=== PATIENT | female | born 1945 | race Caucasian/White ===

== ENCOUNTER 2018-10-30 14:04 | Emergency (ER) | payer OTHER, MEDICARE ==
--- NOTE | 2018-10-30 14:41 | EDPHY ---
H & P Stated Complaint: coughing, fevers, chills, recent dx of bone CA Time Seen by Provider: 10/30/18 14:24 HPI/ROS: CHIEF COMPLAINT: Cough, fever x5 weeks HISTORY OF PRESENT ILLNESS: 73-year-old female history of Waldenstrom macroglobulinemia diagnosed April 2018, followed at [facility] ( Dr Nesbitt) complaining of cough and recurrent intermittent fever for the past 5 weeks. She saw saw her oncologist Dr. Christianson ([place], [place]) 5 days ago for same complaints with no specific answer, in the ER complaining of continued cough and recurrent fever. She has not taken any [id number] antitussive medications. PRIMARY CARE PROVIDER:Amber Donnelly [facility] REVIEW OF SYSTEMS: 10 systems reviewed and negative with the exception of the elements mentioned in the history of present illness PAST MEDICAL & SURGICAL HISTORY: Waldenstrom macroglobulinemia, on Imbruvica. Since of consolidation right lung thought to be possibly secondary to Mac infection although this is currently being investigated at [facility] SOCIAL HISTORY: Nonsmoker PHYSICAL EXAM (Prior to examination, patient consented to physical exam, hands were washed and my usual and customary physical exam procedures followed) 1) GENERAL: Well-developed, well-nourished, alert and oriented. Appears to be in no acute distress. Speaking full sentences no signs of respiratory distress. 2) HEAD: Normocephalic, atraumatic 3) HEENT: Pupils equal, round, reactive to light bilaterally. Sclera anicteric. Nasopharynx, oropharynx, clear, no lesions. Moist mucous membranes. 4) NECK: Full range of motion, no meningeal signs. 5) LUNGS: Clear auscultation bilaterally, no wheezes, no rhonchi, no retractions. Breathing comfortably. 6) HEART: Regular rate and rhythm, no murmur, no heave, no gallop. 7) ABDOMEN: No guarding, no rebound, no focal tenderness, negative McBurney's, negative Abdi's, negative Rovsing's, negative peritoneal sign, 8) MUSCULOSKELETAL: Moving all extremities, no focal areas of tenderness, no obvious trauma. No peripheral edema or discoloration. 9) BACK: No CVA tenderness, no midline vertebral tenderness, no fluctuance, no step-off, no obvious trauma, no visual or palpable abnormality. 10) SKIN: No rash, no petechiae. 11) Psychiatric: Patient is oriented X 3, there is no agitation. DIFFERENTIAL DIAGNOSIS: In no particular order including but not limited to bronchitis, pneumonia, pneumothorax - Personal History Current Tetanus/Diphtheria Vaccine: Yes Current Tetanus Diphtheria and Acellular Pertussis (TDAP): Yes - Medical/Surgical History Hx Asthma: No Hx Chronic Respiratory Disease: No Hx Diabetes: No Hx Cardiac Disease: No Hx Renal Disease: No Hx Cirrhosis: No Hx Alcoholism: No Hx HIV/AIDS: No Hx Splenectomy or Spleen Trauma: No Other PMH: Recent CA dx, - Social History Smoking Status: Never smoked Constitutional: Initial Vital Signs Temperature (C) 36.8 C 10/30/18 14:13 Heart Rate 89 10/30/18 14:13 Respiratory Rate 16 10/30/18 14:13 Blood Pressure 137/77 H 10/30/18 14:13 O2 Sat (%) 94 10/30/18 14:13 O2 Delivery Mode Room Air Allergies/Adverse Reactions: No Known Allergies Allergy (Unverified 01/20/14 13:25) Home Medications: Medication Instructions Recorded Aspirin 05/13/16 Medical Decision Making - Diagnostics Imaging Results: Imaging Impressions Chest X-Ray 10/30/18 14:37 Impression: 1. Slight progression of consolidation with air-filled cystic changes inferior aspect of right upper lobe and to the right middle lobe. Chest/Thorax CTA 10/30/18 15:33 Impression: 1. Negative for acute pulmonary embolus. 2. Near total opacification of the right upper and middle lobes, increased in degree since 2016. There is associated bronchiectasis and ipsilateral mediastinal shift. Paratracheal lymph nodes are unchanged. This probably represents underlying chronic infection with atelectasis due to the mediastinal shift. Recommend pulmonary consultation. 3. A right upper lobe nodule measures 6.7 cm and demonstrates ground glass density around it. This has increased in size since 2016 but this increase in size may represent a superimposed infectious process. Would recommend repeat chest CT in 3 months to assess stability or resolution of the ground glass component. 4. Small right pleural effusion. Findings and recommendations discussed with Rox Montes at 1640 hour, . ED Course/Re-evaluation: 4:49 p.m.: Patient re-evaluated. She is sleeping, resting comfortably. While in the emergency department she has had no complaints of dyspnea or chest pain. I have observed the patient ambulating with pulse oximetry in place she is maintaining saturations of 94 and 95% on room air with exertion. Addition her lungs are clear bilaterally. At I discussed with the patient her diagnostic results showing increasing consolidation of the right lung as well as new right lung nodule. She has an appointment with her oncologist in [place], [place] tomorrow which I recommend she keep. Also recommend she follow up with her splitter machine [facility]. At this time I do not identify definitive indication for admission. She and daughter feel comfortable being discharged home. Patient feels comfortable being discharged. All questions and concerns addressed by myself. Patient given my usual and customary discharge precautions and instructions regarding their clinical impression. Care of patient under supervision of secondary supervising physician Dr Luna with whom I discussed case. - Data Points Laboratory Results: Laboratory Results 10/30/18 14:45 10/30/18 14:45 10/30/18 10/30/18 14:45 14:45 WBC 8.72 10^3/uL 10^3/uL (3.80-9.50) RBC 3.73 10^6/uL L 10^6/uL (4.18-5.33) Hgb 12.1 g/dL L g/dL (12.6-16.3) Hct 35.9 % L % (38.0-47.0) MCV 96.2 fL fL (81.5-99.8) MCH 32.4 pg pg (27.9-34.1) MCHC 33.7 g/dL g/dL (32.4-36.7) RDW 12.4 % % (11.5-15.2) Plt Count 147 10^3/uL L 10^3/uL (150-400) MPV 10.6 fL fL (8.7-11.7) Neut % (Auto) Not Reported Lymph % (Auto) Not Reported [place] % (Auto) Not Reported Eos % (Auto) Not Reported Baso % (Auto) Not Reported Nucleat RBC Rel Count Not Reported Absolute Neuts (auto) Not Reported Absolute Lymphs (auto) Not Reported Absolute Monos (auto) Not Reported Absolute Eos (auto) Not Reported Absolute Basos (auto) Not Reported Absolute Nucleated RBC Not Reported Immature Gran % Not Reported Seg Neutrophils % 59.2 % % Band Neutrophils % 15.3 % % Lymphocytes % 15.3 % % Monocytes % 7.2 % % Eosinophils % 1.0 % % Basophils % 0.0 % % Metamyelocytes % 1.0 % % Myelocytes % 1.0 % % Promyelocytes % 0.0 % % Blast Cells % 0.0 % % Immature Gran # Not Reported Absolute Seg Neuts 5.16 10^3/uL 10^3/uL (1.70-6.50) Absolute Band Neuts 1.33 10^3/uL H 10^3/uL (0.00-0.70) Absolute Lymphocytes 1.33 10^3/uL 10^3/uL (1.00-3.00) Absolute Monocytes 0.63 10^3/uL 10^3/uL (0.30-0.80) Absolute Eosinophils 0.09 10^3/uL 10^3/uL (0.03-0.40) Absolute Basophils 0.00 10^3/uL L 10^3/uL (0.02-0.10) Absolute Metamyelocyte 0.09 10^3/mL H 10^3/mL (0.00-0.00) Absolute Myelocytes 0.09 10^3/mL H 10^3/mL (0.00-0.00) Absolute Promyelocytes 0.00 10^3/uL 10^3/uL (0.00-0.00) Absolute Plasma Cells 0.00 10^3/uL 10^3/uL (0.00-0.00) Nucleated RBCs 0 /100 WBC /100 WBC (0-0) RBC/WBC/PLT Morphology NORMAL (NORMAL) Absolute Blast Cells 0.00 10^3/uL 10^3/uL (0.00-0.00) Plasma Cells % 0.0 % % Platelet Estimate ADEQUATE (ADEQ) Sodium 131 mEq/L L mEq/L (135-145) Potassium 3.9 mEq/L mEq/L (3.5-5.2) Chloride 98 mEq/L mEq/L (97-110) Carbon Dioxide 23 mEq/l mEq/l (22-31) Anion Gap 10 mEq/L mEq/L (6-14) BUN 8 mg/dL mg/dL (7-23) Creatinine 0.6 mg/dL mg/dL (0.6-1.0) Estimated GFR > 60 Glucose 97 mg/dL mg/dL (70-100) Calcium 9.0 mg/dL mg/dL (8.5-10.4) Departure - Departure Disposition: Home, Routine, Self-Care Clinical Impression: Consolidation of right upper lobe of lung, Nodule of right lung Condition: Good Instructions: Non-Hodgkin Lymphoma (ED) Additional Instructions: Return to the ER if you develop chest pain, shortness of breath or any other symptoms that concern you. Referrals: Keep, your appointment with your oncologist tomorrow [Other] - As per Instructions
[2018-10-30 14:56] LABS: PLATELET COUNT 147 10^3/uL (150-400)
[2018-10-30] MEDS ORDERED: IOPAMIDOL (ISOVUE 370) 100 ML BTL IV ONE (15:44)
[2018-10-30 17:14] VITALS: BP 108/62
== END 2018-10-30 17:14 | disposition home or self-care (01) ==
DX: R91.1 Solitary pulmonary nodule (principal)
CPT/HCPCS: 71046; 71275; 99285; Q9967